=== PATIENT | male | born 1970 | race African-American/Black ===

== ENCOUNTER 2016-07-27 09:41 | Inpatient (IN) | payer SELFPAY ==
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
--- NOTE | ~2016-07-27 | DS ---
Discharge Summary [facility] [address] [place]. [address] NAME: BRIANA CHURCH JR : 74 STATUS : DIS IN PAT#: [id number] AGE: 45 ADM/REG DATE : 07/27/16 MR#: [id number] REPORT SERV DATE: 07/31/16 DICTATED BY: JR. MCGOVERN WILLIAM JOHN DATE: 07/30/16 REPORT STATUS : Draft TRANSCRIBED BY: MODL DATE: 07/30/16 ADMISSION DATE: 07/27/2016 DISCHARGE DATE: 07/30/2016 DISCHARGE DIAGNOSES: Include: 1. Hypertensive urgency. 2. Acute systolic heart failure with pulmonary edema and fluid overload. 3. Normal coronaries. 4. Chest pain with elevated troponin. 5. Acute kidney injury. OPERATIONS, PROCEDURES, AND TREATMENTS: Include: 1. Portable chest x-ray done 07/27/2016, which showed borderline cardiomegaly, pulmonary vascular congestion, and interstitial edema. 2. Repeat chest x-ray done 07/29/2016 showed no acute cardiopulmonary abnormalities. 3. Echocardiogram done 07/28/2016 which showed moderately decreased left ventricular systolic function with ejection fraction of 35% with mild diastolic dysfunction, dilated left atrium, normal right ventricular chamber size and systolic function, moderate aortic and mitral regurgitation. 4. Myocardial perfusion scan done 07/29/2016 which showed Nolan stage 3, achieved at 85% percent predicted maximal heart rate at 10 METS, no anginal chest pain. No EKG changes of ischemia. Imaging demonstrated a dilated left ventricle with severe global hypokinesia probably consistent with dilated cardiomyopathy, but ischemia cannot be excluded by this study. The post exercise ejection fraction was less than 30%, overall high risk stress test. 5. Cardiac catheterization done 07/30/[address] Francisco showed angiographically normal coronaries with a left ventricular end-diastolic pressure of 22 to 24 mmHg. Medical management and risk factor modification were recommended. DISCHARGE MEDICATIONS: Include: 1. Coreg 12.5 mg orally twice a day. 2. Lasix 40 mg orally daily. 3. Lisinopril 40 mg orally daily. HOSPITAL COURSE: The patient is a very pleasant 45-year-old male who presented to emergency room at [facility] on 07/27/2016 with complaint of shortness of breath. The patient smokes about a quarter of a pack per day and has long-standing hypertension, had been having increasing dyspnea on exertion and shortness of breath for the past several weeks. The evening prior had a several hour long episode of chest pain which was now relieved, however, he continued to be short of breath and came to the emergency room for further help. On initial exam, his temperature was 98.6, heart rate 103, respiratory rate 20, and blood pressure 163/99. Exam was overall unremarkable. Lab showed a BNP elevated at 825. Chest x-ray showed evidence of pulmonary edema. EKG showed left ventricular hypertrophy with left axis deviation. The patient was felt to have fluid overload. He was admitted to the Clinical Decision Unit. Discharge Summary [address] [place]. [address] NAME: LYNNETTEBRIANA TRUJILLO : 74 STATUS : DIS IN PAT#: [id number] AGE: 45 ADM/REG DATE : 07/27/16 MR#: [id number] REPORT SERV DATE: 07/31/16 DICTATED BY: JR. MCGOVERN WILLIAM JOHN DATE: 07/30/16 REPORT STATUS : Draft TRANSCRIBED BY: MARIANO DATE: 07/30/16 He had nitrate, hydralazine, lisinopril initially. The patient underwent an echocardiogram, which showed depressed ejection fraction. Therefore, Cardiology was consulted for an ischemic workup. The patient initially underwent a stress test which was high risk followed by a cardiac catheterization which showed angiographically normal coronaries. He will be discharged home on AMADO inhibitor, beta-blockade, and diuretic and will follow up with Dr. Francisco. Regarding tobacco abuse, the patient was counseled to stop. Regarding acute kidney injury, this was improved/resolved. At discharge, his BUN and creatinine was 22 and 1.3. As to the patient's followup, he will follow up with Dr. Francisco in one to two weeks. He will also follow up with primary care provider when one is procured. This discharge took 38 minutes for patient encounter, coordination of care, and documentation. DISCHARGE DIET: Low sodium, 2 L fluid restriction. ACTIVITY: As tolerated. RINKU/MARIANO Tony Mcgovern Jr, MD / [id number] CC: Tony Mcgovern Jr, MD
[2016-07-27 10:58] LABS: PROTIME (NOT ORD) 12.8 SEC (12.0-14.5)
[2016-07-27 11:02] LABS: BASOPHILS 0.2 %; BASOPHILS ABSOLUTE 0.03 10/3/uL (0.0-0.16); EOSINOPHILS 1.3 %; EOSINOPHILS ABSOLUTE 0.19 10/3/uL (0.0-0.53); HEMATOCRIT 43.7 % (40.0-51.0); HEMOGLOBIN 15.2 g/dL (13.6-17.8); IMMATURE GRANULOCYTES 0.2 %; IMMATURE GRANULOCYTES ABSOLUTE 0.03 10/3/uL (0.0-0.11); LYMPHOCYTES 10.6 %; LYMPHOCYTES ABSOLUTE 1.57 10/3/uL (0.67-4.30); MEAN CORPUS HGB CONC 34.8 g/dL (32.0-36.0); MEAN CORPUSCULAR HEMOGLOB 31.3 pg (26.0-34.0); MEAN CORPUSCULAR VOLUME 90.1 fL (80-100); MEAN PLATELET VOLUME 10.6 fL (9.2-13.0); MONOCYTES 8.4 %; MONOCYTES ABSOLUTE 1.24 10/3/uL (0.21-1.20); NEUTROPHILS 79.3 %; NEUTROPHILS ABSOLUTE 11.78 10/3/uL (2.02-8.40); PLATELET COUNT 335 10/3/uL (150-400); RED CELL COUNT 4.85 10/6/uL (4.7-6.1); WHITE BLOOD CELLS 14.8 10/3/uL (4.5-10.5)
[2016-07-27 11:03] LABS: MANUAL DIFF NO %
[2016-07-27 11:07] LABS: BUN (BLOOD UREA NITROGEN) 13 MG/DL (6-23); CALCIUM, SERUM 8.6 MG/DL (8.5-10.4); CHLORIDE, SERUM 109 MMOL/L (96-112); CO2 (CARBON DIOXIDE) 22 MMOL/L (24-34); CREATININE 1.26 MG/DL (0.70-1.30); GFR AFRICAN AMERICAN 80 ML/MIN (>=60); GFR NON AFRICAN AMERICAN 69 ML/MIN (>=60); GLUCOSE, SERUM 92 MG/DL (60-99); POTASSIUM, SERUM 3.7 MMOL/L (3.5-5.3); SODIUM, SERUM 143 MMOL/L (135-148)
[2016-07-27 11:12] LABS: INFLUENZA A SCREEN NEGATIVE (NEGATIVE); INFLUENZA B SCREEN NEGATIVE (NEGATIVE)
[2016-07-27 11:14] LABS: CHEST PAIN PROFILE TAT 0 Hrs 29 Mins; TROPONIN I 0.14 NG/ML (<0.05)
[2016-07-27] MEDS ORDERED: *DENIES (11:37)
[2016-07-27 18:06] LABS: AMPHETAMINES (NOT ORD) NEG (NEG); BENZODIAZEPINES (NOT ORD) NEG (NEG); CANNABINOIDS (THC) NEG (NEG); COCAINE (NOT ORDERED) NEG (NEG); PHENCYCLIDINE(PCP) NEG (NEG)
[2016-07-27 18:07] LABS: BARBITURATES (NOT ORDERED NEG (NEG); OPIATES NEG (NEG); TRICYCLICS NEG (NEG)
[2016-07-27 19:56] LABS: ULTRASENSITIVE TSH 0.343 MCIU/ML (0.358-3.740)
[2016-07-27 22:17] LABS: PROCALCITONIN <0.05 ng/mL (<0.5)
[2016-07-28 04:16] LABS: BASOPHILS 0.1 %; BASOPHILS ABSOLUTE 0.02 10/3/uL (0.0-0.16); EOSINOPHILS 0.1 %; EOSINOPHILS ABSOLUTE 0.01 10/3/uL (0.0-0.53); HEMATOCRIT 41.8 % (40.0-51.0); IMMATURE GRANULOCYTES 0.3 %; IMMATURE GRANULOCYTES ABSOLUTE 0.04 10/3/uL (0.0-0.11); LYMPHOCYTES 12.5 %; LYMPHOCYTES ABSOLUTE 1.75 10/3/uL (0.67-4.30); MEAN CORPUS HGB CONC 33.5 g/dL (32.0-36.0); MEAN CORPUSCULAR HEMOGLOB 30.4 pg (26.0-34.0); MEAN CORPUSCULAR VOLUME 90.9 fL (80-100); MEAN PLATELET VOLUME 10.6 fL (9.2-13.0); MONOCYTES 10.5 %; MONOCYTES ABSOLUTE 1.48 10/3/uL (0.21-1.20); NEUTROPHILS 76.5 %; NEUTROPHILS ABSOLUTE 10.75 10/3/uL (2.02-8.40); PLATELET COUNT 352 10/3/uL (150-400); RBC DISTRIBUTION WIDTH 14.2 % (12.0-16.0); WHITE BLOOD CELLS 14.1 10/3/uL (4.5-10.5)
[2016-07-28 04:17] LABS: MANUAL DIFF NO %
[2016-07-28 04:32] LABS: BUN (BLOOD UREA NITROGEN) 19 MG/DL (6-23); CALCIUM, SERUM 8.7 MG/DL (8.5-10.4); CHLORIDE, SERUM 107 MMOL/L (96-112); CHOL/HDL RATIO(NOT ORDER) 2.8 (0-5); CHOLESTEROL 184 MG/DL (< 200); CO2 (CARBON DIOXIDE) 26 MMOL/L (24-34); CREATININE 1.52 MG/DL (0.70-1.30); GFR AFRICAN AMERICAN 64 ML/MIN (>=60); GFR NON AFRICAN AMERICAN 55 ML/MIN (>=60); GLUCOSE, SERUM 113 MG/DL (60-99); HDL CHOLESTEROL 66 MG/DL (> 39); LDL CHOLESTEROL 99 MG/DL (< 130); NON-HDL CHOLESTEROL 118 MG/DL (< 160); SODIUM, SERUM 143 MMOL/L (135-148); TRIGLYCERIDE 97 MG/DL (< 150)
[2016-07-28 04:33] LABS: TROPONIN I 0.08 NG/ML (<0.05)
[2016-07-28 04:45] LABS: ASCORBIC ACID (UR NOT ORDER) NEG (NEG); BILIRUBIN, URINE NEGATIVE (NEG); KETONE, URINE NEGATIVE (NEG); LEUKOCYTE ESTERASE(NOT OR TRACE (NEG); WBC (NOT ORDERED) (RFLEX) 2 (0-5)
[2016-07-29 04:04] LABS: BASOPHILS 0.3 %; BASOPHILS ABSOLUTE 0.03 10/3/uL (0.0-0.16); EOSINOPHILS 2.2 %; EOSINOPHILS ABSOLUTE 0.25 10/3/uL (0.0-0.53); HEMATOCRIT 41.9 % (40.0-51.0); IMMATURE GRANULOCYTES 0.2 %; IMMATURE GRANULOCYTES ABSOLUTE 0.02 10/3/uL (0.0-0.11); LYMPHOCYTES 22.1 %; LYMPHOCYTES ABSOLUTE 2.54 10/3/uL (0.67-4.30); MEAN CORPUS HGB CONC 33.4 g/dL (32.0-36.0); MEAN CORPUSCULAR HEMOGLOB 30.5 pg (26.0-34.0); MEAN CORPUSCULAR VOLUME 91.3 fL (80-100); MEAN PLATELET VOLUME 10.8 fL (9.2-13.0); MONOCYTES 8.3 %; MONOCYTES ABSOLUTE 0.95 10/3/uL (0.21-1.20); NEUTROPHILS 66.9 %; NEUTROPHILS ABSOLUTE 7.69 10/3/uL (2.02-8.40); PLATELET COUNT 342 10/3/uL (150-400); RBC DISTRIBUTION WIDTH 14.1 % (12.0-16.0); RED CELL COUNT 4.59 10/6/uL (4.7-6.1); WHITE BLOOD CELLS 11.5 10/3/uL (4.5-10.5)
[2016-07-29 04:09] LABS: MANUAL DIFF NO %
[2016-07-29 04:38] LABS: CALCIUM, SERUM 8.3 MG/DL (8.5-10.4); CHLORIDE, SERUM 105 MMOL/L (96-112); CO2 (CARBON DIOXIDE) 27 MMOL/L (24-34); CREATININE 1.52 MG/DL (0.70-1.30); FREE T4 1.22 NG/DL (0.76-1.46); GFR AFRICAN AMERICAN 64 ML/MIN (>=60); GFR NON AFRICAN AMERICAN 55 ML/MIN (>=60); GLUCOSE, SERUM 112 MG/DL (60-99); POTASSIUM, SERUM 3.5 MMOL/L (3.5-5.3); SODIUM, SERUM 143 MMOL/L (135-148)
[2016-07-29 04:40] LABS: BUN (BLOOD UREA NITROGEN) 23 MG/DL (6-23)
[2016-07-30 05:40] LABS: BASOPHILS 0.3 %; BASOPHILS ABSOLUTE 0.03 10/3/uL (0.0-0.16); EOSINOPHILS ABSOLUTE 0.43 10/3/uL (0.0-0.53); HEMATOCRIT 41.7 % (40.0-51.0); HEMOGLOBIN 13.8 g/dL (13.6-17.8); IMMATURE GRANULOCYTES 0.1 %; IMMATURE GRANULOCYTES ABSOLUTE 0.01 10/3/uL (0.0-0.11); LYMPHOCYTES 20.3 %; LYMPHOCYTES ABSOLUTE 1.75 10/3/uL (0.67-4.30); MEAN CORPUS HGB CONC 33.1 g/dL (32.0-36.0); MEAN CORPUSCULAR HEMOGLOB 30.3 pg (26.0-34.0); MEAN CORPUSCULAR VOLUME 91.6 fL (80-100); MEAN PLATELET VOLUME 10.5 fL (9.2-13.0); MONOCYTES 9.4 %; MONOCYTES ABSOLUTE 0.81 10/3/uL (0.21-1.20); NEUTROPHILS 64.9 %; NEUTROPHILS ABSOLUTE 5.57 10/3/uL (2.02-8.40); PLATELET COUNT 358 10/3/uL (150-400); RED CELL COUNT 4.55 10/6/uL (4.7-6.1); WHITE BLOOD CELLS 8.6 10/3/uL (4.5-10.5)
[2016-07-30 05:49] LABS: MANUAL DIFF NO %
[2016-07-30 05:56] LABS: PROTIME (NOT ORD) 12.7 SEC (12.0-14.5)
[2016-07-30 05:58] LABS: BUN (BLOOD UREA NITROGEN) 22 MG/DL (6-23); CALCIUM, SERUM 8.2 MG/DL (8.5-10.4); CHLORIDE, SERUM 107 MMOL/L (96-112); CHOLESTEROL 156 MG/DL (< 200); CO2 (CARBON DIOXIDE) 26 MMOL/L (24-34); CREATININE 1.31 MG/DL (0.70-1.30); GFR AFRICAN AMERICAN 77 ML/MIN (>=60); GFR NON AFRICAN AMERICAN 66 ML/MIN (>=60); GLUCOSE, SERUM 94 MG/DL (60-99); POTASSIUM, SERUM 4.2 MMOL/L (3.5-5.3); SODIUM, SERUM 142 MMOL/L (135-148)
[2016-07-30 05:59] LABS: CHOL/HDL RATIO(NOT ORDER) 3.3 (0-5); HDL CHOLESTEROL 48 MG/DL (> 39); LDL CHOLESTEROL 82 MG/DL (< 130); NON-HDL CHOLESTEROL 108 MG/DL (< 160); TRIGLYCERIDE 134 MG/DL (< 150)
[2016-07-30] MEDS ORDERED: COREG12 (20:03)
[2016-07-30] MEDS ORDERED: LISINOPRIL40 MG PO (20:04)
[2016-07-30] MEDS ORDERED: L40 PO (20:04)
== END 2016-07-30 20:49 | disposition home or self-care (01) | DRG 286 ==
LOC: ER 09:41 → CDU1 13:23
PROVIDERS: Emergency Medicine; Internal Medicine; Nurse Practitioner Family
PROC: 4A023N7 Measurement of Cardiac Sampling and Pressure, Left Heart, Percutaneous Approach (ICD-10-PCS; principal; 2016-07-30)
PROC: B2111ZZ Fluoroscopy of Multiple Coronary Arteries using Low Osmolar Contrast (ICD-10-PCS; 2016-07-30)
PROC: B2151ZZ Fluoroscopy of Left Heart using Low Osmolar Contrast (ICD-10-PCS; 2016-07-30)
DX: I16.0 Hypertensive urgency (principal); I50.21 Acute systolic (congestive) heart failure; N17.9 Acute kidney failure, unspecified; I24.8 Other forms of acute ischemic heart disease; I42.0 Dilated cardiomyopathy; I13.0 Hypertensive heart and chronic kidney disease with heart failure and stage 1 through stage 4 chronic kidney disease, or unspecified chronic kidney disease; F17.210 Nicotine dependence, cigarettes, uncomplicated; Z82.49 Family history of ischemic heart disease and other diseases of the circulatory system; Z83.3 Family history of diabetes mellitus; R00.0 Tachycardia, unspecified; Z91.19 Patient's noncompliance with other medical treatment and regimen; G89.29 Other chronic pain; N18.2 Chronic kidney disease, stage 2 (mild)
CPT/HCPCS: 71010; 71020; 78452; 80048; 80061; 80305; 81001; 83735; 83880; 84145; 84439; 84443; 84484; 85025; 85610; 85730; 87804; 93005; 93017; 93306; 93458; 94640; 96374; 96375; 99152; 99153; 99291; A9270-GY; A9502; C1769; C1887; C1894; J0360; J1940; J2250; J2930; J3010; Q9967